=== PATIENT | female | born 1955 | race Caucasian/White ===

== ENCOUNTER 2018-07-31 08:17 | Day surgery (SDC) | payer BC ==
[~2018-07-31] VITALS: Ht 165.1 cm; Wt 91.1 kg
[~2018-07-31 08:17] MED LIST: ADVI100T PO; ATEN25TA PO; DYAZ37.5 PO; GABA-1171 PO; LR 1,000 ML IV ONE; PANT40TA3 PO; PLAQ200T4 PO; SIMV10TA2 PO
[2018-07-31] MEDS ORDERED: LIDOCAINE 1% SDV INJ 30 ML VIAL As Ordered ONE (09:24)
[2018-07-31] MEDS ORDERED: LIDOCAINE 4% TOPICAL SOLN 50 ML BTL As Ordered ONE (09:24)
[2018-07-31] MEDS ORDERED: THROMBIN SOLN 5,000 UNITS VIAL As Ordered ONE (09:24)
[2018-07-31] MEDS ORDERED: EPINEPHrine 1MG/10ML SYRINGE 1.5IN As Ordered ONE (09:24)
[2018-07-31] MEDS ORDERED: LIDOCAINE VISCOUS 2% SOLN 15ML UDC As Ordered ONE (09:25)
[2018-07-31] MEDS ORDERED: CETACAINE SPRAY 5GM As Ordered ONE (09:33)
[2018-07-31] MEDS ORDERED: SUGAMMADEX SODIUM 500 MG/5 ML VIAL (BRIDION) As Ordered ONE (09:57)
[2018-07-31] MEDS ORDERED: METOCLOPRAMIDE INJ 10MG/2ML VIAL (J2765) As Ordered ONE (09:57)
[2018-07-31] MEDS ORDERED: LIDOCAINE 2% INJ 100 MG/5 ML SDV (FOR ANES.) As Ordered ONE (09:57)
[2018-07-31] MEDS ORDERED: MIDAZOLAM INJ 2 MG/2 ML VIAL (J2250) As Ordered ONE (09:57)
[2018-07-31] MEDS ORDERED: fentaNYL 100 MCG/2 ML INJECTION (J3010) As Ordered ONE (09:57)
[2018-07-31] MEDS ORDERED: ROCURONIUM BROMIDE 50 MG/5 ML VIAL As Ordered ONE (09:57)
[2018-07-31] MEDS ORDERED: PROPOFOL 200 MG/20 ML VIAL As Ordered ONE (09:57)
[2018-07-31] MEDS ORDERED: dexameTHASONE 4 MG/ML 1ML VIAL (J1100) As Ordered ONE (09:57)
[2018-07-31] MEDS ORDERED: ONDANSETRON 4MG/2ML VIAL (J2405) As Ordered ONE (09:57)
[2018-07-31] MEDS ORDERED: ePHEDrine SULFATE 25 MG/5 ML(5MG/ML) SYRINGE As Ordered ONE (10:16)
--- NOTE | 2018-07-31 11:12 | RO ---
DATE OF PROCEDURE: 07/31/2018 PREOPERATIVE DIAGNOSIS: Right upper lobe lung nodule. POSTOPERATIVE DIAGNOSIS: Right upper lobe lung nodule. FINDINGS: Included no endobronchial mass, hypertrophy of mucus pits. PROCEDURE: Bronchoscopy with electromagnetic navigation, microbiology cytology brushing, needle aspiration, and multiple biopsies followed by fiducial marker placement. SURGEON: Dr. Eron Méndez LIFE SKILLS WORKER: ANESTHESIA: COMPLICATIONS: None. PROCEDURE NOTE: The patient was seen and the procedure explained to the patient as were all of the possible complications pertaining thereto including, but not limited to bleeding, infection, medication reaction, and lung collapse. An informed consent conversation was held and forms were completed. The patient was brought to the operative suite and placed under a general anesthetic. When the anesthetic had had sufficient time to take effect, the bronchoscope was placed in through the endotracheal tube and into the trachea. The nile was sharp. The airways of the left lung were examined in a subsegmental fashion for any evidence of tumor, ulcer, necrosis, vessel engorgement or mucosal irregularity. There was some mild vessel engorgement leading into the left upper lobe and hypertrophy of mucus pits. No other endobronchial abnormality was appreciated. The bronchoscope was then retracted and reintroduced into the right lung. The right lung was examined in a similar fashion to the left with particular attention being paid to the right upper lobe. There was once again hypertrophy of mucus pits, no endobronchial lesion was identified. The bronchoscope was then retracted into the trachea and electromagnetic navigational probe was placed in through the bronchoscope and registration performed. When registration was successful, the bronchoscope was navigated into the right upper lobe anterior segment and using fluoroscopic guidance the probe was navigated into the lesion appreciated on CT scan. Fluoroscopic confirmation was performed and thereafter microbiology cytology brushes were obtained, in room cytology suggested adequacy of sampling. Thereafter, needle aspiration was performed into the mass and multiple biopsies obtained, again, under fluoroscopic guidance. Having retrieved sufficient sample, a fiducial marker was placed under direct fluoroscopic visualization into the lesion and the bronchoscope retracted out through the endotracheal tube. The patient tolerated the procedure well and suffered no apparent complication. A postprocedure chest x-ray will be performed in the recovery room. There were no complications.
--- NOTE | 2018-07-31 11:44 | REP ---
Partial chest x-ray: Three views. History: Abnormal x-ray. 2 minutes 58 seconds of fluoroscopy time was utilized. Findings: A sequence of three last image hold fluoroscopically obtained spot radiographs of the right chest document bronchoscopic manipulation and fiducial marker placement in a nodular density. Electronically Signed by Fidel Cheatham MD 07/31/2018 02:00 P
[2018-07-31 11:55] VITALS: BP 123/66
== END 2018-07-31 12:12 | disposition home or self-care (01) ==
LOC: M SDC 08:17
PROVIDERS: ATTEND Internal Medicine Pulmonary Disease
DX: C34.11 Malignant neoplasm of upper lobe, right bronchus or lung (principal); I10 Essential (primary) hypertension; E78.5 Hyperlipidemia, unspecified; K21.9 Gastro-esophageal reflux disease without esophagitis; K59.00 Constipation, unspecified; Z79.899 Other long term (current) drug therapy
CPT/HCPCS: 31623; 31626; 31627; 31628; 71045; 76000; 87071; 88104; 88173; 88305; A4648; J1100; J2250; J2405; J2765; J3010

== ENCOUNTER → 2018-09-09 | Outpatient (CLI) | payer BC ==
[~2018-09-09] MED LIST changes: +ISOVUE-370 76% 100ML VIAL (Q9967) As Ordered ONE; -LR 1,000 ML IV ONE
--- NOTE | 2018-09-09 08:38 | REP ---
Clinical: Lung cancer. Technique: Axial contrast enhanced images from the thoracic inlet to the upper abdomen with coronal and sagittal re-formations using 100 ml Isovue 370 intravenous contrast material. Comparison: Outside CT examination dated 07/04/2018. Findings: Right upper lobe mass measures approximately 3.4 cm maximal diameter with mild spiculated margins and now contains a small surgical clip consistent with subsequent biopsy. A reticulonodular interstitial pattern is also appreciated primarily involving the right lower lobe as well as the right upper lobe and to a lesser extent scattered small noncalcified nodules are identified within the left pulmonary lobes and these findings are concerning for interstitial carcinomatosis. No further consolidation or mass lesion noted. No pleural effusion. No pneumothorax. Mediastinal and right hilar lymph nodes measure up to approximately 9 mm and are nonspecific in appearance. Thoracic aorta, pulmonary vasculature and heart/pericardium are relatively normal. Surrounding musculoskeletal structures demonstrate age-related changes without focal lytic / destructive lesion. Evidence of prior cholecystectomy. Bilateral adrenal glands are normal. Mild fatty infiltration to the liver suggested. Impression: 1. Right upper lobe mass. Diffuse reticulonodular interstitial changes (right greater than left) and scattered small noncalcified nodules throughout the bilateral lung tovar concerning for carcinomatosis. Electronically Signed by Slade Garibay MD 09/09/2018 08:13 A
== END ==
LOC: M RAD 07:26
PROVIDERS: ATTEND Thoracic Surgery (Cardiothoracic Vascular Surgery)
DX: C34.11 Malignant neoplasm of upper lobe, right bronchus or lung (principal)
CPT/HCPCS: 71260; Q9967

== ENCOUNTER → 2018-09-09 | Outpatient (CLI) | payer BC ==
[~2018-09-09] MED LIST changes: +DURA25DI3 TD; -ISOVUE-370 76% 100ML VIAL (Q9967) As Ordered ONE; +PERCOCET PO
[2018-09-09 12:51] LABS: HEMATOCRIT 41.7 % (36.0-47.0); HEMOGLOBIN 13.9 g/dl (12.0-15.5); MEAN CORPUSCULAR HEMOGLOBIN 29.4 pg (27.0-33.0); MEAN CORPUSCULAR HGB CONC 33.3 g/dl (32.0-36.5); MEAN CORPUSCULAR VOLUME 88.2 fl (80.0-96.0); PLATELET COUNT, AUTOMATED 243 10^3/uL (150-450); RED BLOOD COUNT 4.73 10^6/uL (4.00-5.40)
[2018-09-09 13:05] LABS: INR 0.97; PARTIAL THROMBOPLASTIN TIME 27.3 SECONDS (25.0-38.4); PROTHROMBIN TIME 12.6 SECONDS (11.8-14.0)
[2018-09-09 13:07] LABS: ABG BASE EXCESS 1.3 (-2.0-2.0); ABG HCO3 25.3 MEQ/L (22.0-26.0); ABG PARTIAL PRESSURE CO2 38.3 mmHg (35.0-45.0); ABG PARTIAL PRESSURE O2 106.4 mmHg (75.0-100.0); ABG STANDARD HCO3 25.6 MEQ/L (22.0-26.0); ABG TOTAL CO2 26.5 MEQ/L (23.0-31.0); ABG pH (ARTERIAL) 7.438 UNITS (7.350-7.450)
[2018-09-09 13:07] LABS: APPEARANCE, URINE CLEAR (CLEAR); BACTERIA, URINE AUTO NEGATIVE (NEGATIVE); BILIRUBIN, URINE AUTO NEGATIVE (NEGATIVE); BLOOD, URINE BLOOD NEGATIVE (NEGATIVE); COLOR, URINE YELLOW (YELLOW); GLUCOSE, URINE (UA) AUTO NEGATIVE (NEGATIVE); KETONE, URINE AUTO NEGATIVE (NEGATIVE); LEUKOCYTE ESTERASE, URINE AUTO NEGATIVE (NEGATIVE); NITRITE, URINE AUTO NEGATIVE (NEGATIVE); PROTEIN, URINE AUTO NEGATIVE (NEGATIVE); RBC, URINE AUTO 3 /HPF (0-3); SQUAMOUS EPITHELIAL CELL UR AU 2 /HPF (0-6); UROBILINOGEN, URINE AUTO 0.2 mg/dL (0.0-2.0); WBC, URINE AUTO 1 /HPF (0-3)
[2018-09-09 13:13] LABS: SPECIFIC GRAVITY URINE AUTO >1.060 (1.002-1.035)
--- NOTE | 2018-09-09 13:49 | REP ---
Clinical: Lung cancer. Chest pain. Technique: PA and lateral. Comparison: 07/31/2018. Findings: Mediastinum and cardiac silhouette are within normal limits and stable. 2.8 cm rounded mass in the right upper lung zone remains stable. Underlying chronic interstitial changes involving the bilateral bases again noted. No obvious acute consolidation, effusion, or pneumothorax. Skeletal structures are stable. Impression: Stable chest x-ray including right upper lobe mass and chronic interstitial changes. No obvious new acute process. Electronically Signed by Slade Garibay MD 09/09/2018 01:41 P
== END ==
LOC: M ADMPAT 12:00
PROVIDERS: ATTEND Thoracic Surgery (Cardiothoracic Vascular Surgery)
DX: Z01.818 Encounter for other preprocedural examination (principal); C34.11 Malignant neoplasm of upper lobe, right bronchus or lung

== ENCOUNTER 2018-09-17 06:30 | Inpatient (IN) | payer BC ==
--- NOTE | 2018-09-11 23:46 | ECGEPIP ---
[facility] Test Date: 2018-09-09 Pat Name: MACK NUÑEZ Department: Room: - Gender: Female Injection Molding Machine Operator: RAISA : 1955 Requested By: Huan Alcala Order Number: [id number] Reading MD: Sheldon Jefferson Measurements Intervals [place] Rate: 77 P: 47 ID: [id number] QRS: 30 QRSD: 130 T: 46 QT: 399 QTc: 453 Interpretive Statements SINUS RHYTHM MODERATE INTRAVENTRICULAR CONDUCTION DELAY, MAY BE ARTIFACTUAL No prior tracing in the system Electronically Signed on 09-11-2018 23:46:35 EDT by Sheldon Jefferson
[~2018-09-17] VITALS: Ht 167.6 cm; Wt 91.0 kg
[2018-09-17] VITALS (11 sets, daily range): BP systolic 92–129; BP diastolic 44–60
[~2018-09-17 06:30] MED LIST changes: -DURA25DI3 TD; +LR 1,000 ML IV ONE; +MIDAZOLAM INJ 2 MG/2 ML VIAL (J2250) IV SCH; +MUPIROCIN 2% OINT 22 GM TUBE TOP ONE; -PERCOCET PO
[2018-09-17] MEDS ORDERED: BUPIVACAINE LIPOSOME/PF 1.3% 20ML VIAL (13.3MG/ML)(EXPAREL)(C9290 PER1MG) As Ordered ONE (07:37)
[2018-09-17] MEDS ORDERED: BUPIVACAINE HCL 0.5% 10 ML VIAL As Ordered ONE (07:38)
[2018-09-17] MEDS ORDERED: SCOPOLAMINE 1MG TRANSDERMAL PATCH As Ordered ONE (08:03)
[2018-09-17] MEDS ORDERED: fentaNYL 100 MCG/2 ML INJECTION (J3010) As Ordered ONE (08:09)
[2018-09-17] MEDS ORDERED: MIDAZOLAM INJ 2 MG/2 ML VIAL (J2250) As Ordered ONE ×2 (08:09→09:37)
[2018-09-17] MEDS ORDERED: SCOPOLAMINE 1MG TRANSDERMAL PATCH TOP ONE (08:15)
[2018-09-17] MEDS ORDERED: CETACAINE SPRAY 5GM As Ordered ONE (08:27)
[2018-09-17] MEDS ORDERED: fentaNYL 100 MCG/2 ML INJECTION (J3010) IV ONE (09:00)
[2018-09-17] MEDS ORDERED: ROCURONIUM BROMIDE 50 MG/5 ML VIAL As Ordered ONE (09:37)
[2018-09-17] MEDS ORDERED: PROPOFOL 200 MG/20 ML VIAL As Ordered ONE (09:37)
[2018-09-17] MEDS ORDERED: LIDOCAINE 2% INJ 100 MG/5 ML SDV (FOR ANES.) As Ordered ONE (09:37)
[2018-09-17] MEDS ORDERED: fentaNYL 250 MCG/5 ML INJECTION (J3010) As Ordered ONE (09:37)
[2018-09-17] MEDS ORDERED: dexameTHASONE 4 MG/ML 1ML VIAL (J1100) As Ordered ONE (09:38)
[2018-09-17] MEDS ORDERED: PHENYLEPHRINE INJ 10MG/ML VIAL (J2370) As Ordered ONE (10:04)
[2018-09-17] MEDS ORDERED: SUGAMMADEX SODIUM 500 MG/5 ML VIAL (BRIDION) As Ordered ONE (10:22)
[2018-09-17] MEDS ORDERED: ONDANSETRON 4MG/2ML VIAL (J2405) As Ordered ONE (10:23)
[2018-09-17] MEDS ORDERED: EPIDURAL/PCA KEYS XX PRN (11:30)
[2018-09-17] MEDS ORDERED: FENTANYL/BUPIVACAINE/NACL BAG 250 ML EPIDURAL SCH (11:30)
[2018-09-17] MEDS ORDERED: ONDANSETRON 4MG/2ML VIAL (J2405) IV PRN ×2 (11:30→12:15)
[2018-09-17] MEDS ORDERED: WALLBOXKEY XX PRN (11:30)
[2018-09-17] MEDS ORDERED: NALOXONE INJ 0.4 MG/1 ML VIAL (J2310) IV PRN (11:30)
[2018-09-17] MEDS ORDERED: METOCLOPRAMIDE INJ 10MG/2ML VIAL (J2765) IV PRN ×2 (11:30→12:15)
[2018-09-17] MEDS: FENTANYL/BUPIVACAINE/NACL BAG 250 ML EPIDURAL SCH (11:30)
[2018-09-17] MEDS: KCL 20MEQ IN D5/NS 1000ML 1,000 ML IV SCH ×2 (11:46→22:53)
[2018-09-17 12:00] LABS: ABG BASE EXCESS 1.4 (-2.0-2.0); ABG HCO3 27.2 MEQ/L (22.0-26.0); ABG O2 SATURATION 97.9 % (95.0-99.0); ABG PARTIAL PRESSURE CO2 47.2 mmHg (35.0-45.0); ABG PARTIAL PRESSURE O2 110.5 mmHg (75.0-100.0); ABG STANDARD HCO3 25.8 MEQ/L (22.0-26.0); ABG TOTAL CO2 28.6 MEQ/L (23.0-31.0); ABG pH (ARTERIAL) 7.378 UNITS (7.350-7.450)
[2018-09-17] MEDS ORDERED: BISACODYL 10 MG SUPP PR PRN (12:00)
[2018-09-17] MEDS ORDERED: NORCO, ANEXSIA 5/325MG TABLET (HYDROcodone/ACETAMINOPHEN) PO PRN (12:00)
[2018-09-17] MEDS ORDERED: PERCOCET 5MG/325MG TAB PO PRN ×2 (12:00→12:15)
[2018-09-17] MEDS ORDERED: LEVALBUTEROL 1.25 MG/0.5 ML CONCENTRATE NEB NEB PRN (12:00)
[2018-09-17] MEDS ORDERED: KCL 20MEQ IN D5/0.9%NACL 1000 ML As Ordered ONE (12:03)
[2018-09-17 12:08] LABS: BASO # 0.1 10^3/uL (0.0-0.2); BASO % 0.7 % (0.0-1.0); EOS % 0.3 % (0.0-3.0); HEMATOCRIT 38.6 % (36.0-47.0); LYMPH # 0.5 10^3/uL (1.5-4.5); LYMPH % 6.8 % (24.0-44.0); MEAN CORPUSCULAR HEMOGLOBIN 29.7 pg (27.0-33.0); MEAN CORPUSCULAR HGB CONC 33.7 g/dl (32.0-36.5); MEAN CORPUSCULAR VOLUME 88.3 fl (80.0-96.0); MONO # 0.2 10^3/uL (0.0-0.8); MONO % 3.5 % (0.0-5.0); NEUTROPHILS # 6.1 10^3/uL (1.8-7.7); NEUTROPHILS % 88.4 % (36.0-66.0); PLATELET COUNT, AUTOMATED 247 10^3/uL (150-450); RED BLOOD COUNT 4.37 10^6/uL (4.00-5.40); WHITE BLOOD COUNT 6.9 10^3/uL (4.0-10.0)
[2018-09-17] MEDS: fentaNYL 100 MCG/2 ML INJECTION (J3010) IV PRN ×4 (12:08→12:30)
[2018-09-17] MEDS ORDERED: KETOROLAC 30 MG/ML VIAL (J1885) As Ordered ONE (12:12)
[2018-09-17] MEDS: KETOROLAC 30 MG/ML VIAL (J1885) IV SCH ×2 (12:15→17:04)
[2018-09-17] MEDS ORDERED: LR 1,000 ML IV SCH (12:15)
--- NOTE | 2018-09-17 12:18 | REP ---
Clinical: Status post thoracotomy. Comparison: 09/09/2018. Findings: Postsurgical changes involving the right hemithorax with two chest tubes, small amount of subcutaneous emphysema, and right basilar atelectasis. Right upper lobe mass is again identified and essentially unchanged. Left hemithorax is clear. Cardiac silhouette is normal. Skeletal structures are intact. Impression: Postsurgical changes involving the right hemithorax. Electronically Signed by Slade Garibay MD 09/17/2018 12:10 P
[2018-09-17] MEDS ORDERED: ACETAMINOPHEN 1000MG 100ML IV BTL (OFIRMEV) (J0131 PER 10MG) As Ordered ONE (12:24)
[2018-09-17 12:25] LABS: CALCIUM LEVEL 8.4 MG/DL (8.8-10.2); CREATININE FOR GFR 1.11 MG/DL (0.55-1.30); GLOMERULAR FILTRATION RATE 52.8 (>45); POTASSIUM SERUM 3.1 MEQ/L (3.5-5.1)
[2018-09-17] MEDS ORDERED: ACETAMINOPHEN *IV* 1,000 MG IV ONE ×2 (12:45)
--- NOTE | 2018-09-17 12:51 | RO ---
DATE OF PROCEDURE: 09/17/2018 PREPROCEDURE DIAGNOSIS: Stage I B adenocarcinoma of the right upper lobe. POSTPROCEDURE DIAGNOSIS: At least stage III A adenocarcinoma with diffuse metastasis to lower and middle lobes with lymphangitic spread by frozen section. PROCEDURE: Bronchoscopy, right thoracotomy, multiple wedge resections of the middle and lower lobes. Pleural biopsy. Five-level rib block. Multiple pleural biopsies. SURGEON: Huan Edwards PRINTING MECHANIST: ANESTHESIA: Anesthesia. FINDINGS: Upon gaining access to the chest, the fissures were complete. However, I did notice that the major fissure was covered with a nodular whitish-frazier tissue. I palpated the upper lobe and I easily found the tumor. However, the middle lobe and lower lobe had multiple nodules, almost like the grains of sand. Because I was suspicious that the major fissure tissue looked to be suspicious for carcinoma and metastatic spread, I biopsied a few of the nodules in the right middle lobe and they turned out to be poorly differentiated adenocarcinoma, the same type as the upper lobe with lymphangitic spread. I took biopsies of the pleura and also of the right lower lobe. I did not find any pleural studding, although I did undertake some random samples of the pleura. She had diffuse spread of the carcinoma throughout ipsilateral lobes. This favored at least stage III A disease and I did not see therapeutic implication to undertake lymph node dissection. Of course, I did not see any therapeutic implications to continue with the lobectomy. Bronchoscopy revealed a normal bronchial tree. I did not see any endobronchial lesions. She has scant secretions. DESCRIPTION OF PROCEDURE: Under satisfactory single lumen tube intubation with general anesthesia, bronchoscope was placed in tracheobronchial tree. Each segment and sub-segment was thoroughly inspected and I did not see any endobronchial lesions. The patient was then turned into the left lateral decubitus position and sterilely prepped and draped in the usual fashion. A posterolateral thoracotomy incision was made and the chest was entered initially through the 5th intercostal space after counting the ribs. With the small peek that I had through that intercostal space, I was not happy with the position of the fissure. Therefore, I decided to go to the 4th intercostal space and do a thoracotomy through that. The above findings were noted. The middle lobe nodules were seized with a Millard clamp and wedge resection undertaken with the [place] 4.8 stapler. Likewise, the lower lobe nodules were wedged. Realizing that the nodules that were wedged represented one of maybe scores of nodules that I could feel in both lower and middle lobes, the planned lobectomy was abandoned. I did not see or feel pleural studs, but random biopsies were taken of the parietal pleura. A 5-level rib block with Exparel was then injected and two chest tubes were placed, one posteriorly and one anteriorly consisting of 24 curved and straight tubes. The ribs were reapproximated by use of #1-0 Prolene, [id number] pericostal sutures. The serratus muscle was closed with 0 Vicryl suture as was the latissimus dorsi. Subcutaneous tissue was closed with running #3-0 Vicryl suture and the skin was closed with running #4-0 Monocryl subcuticular suture. Prior to final closures the serratus and the latissimus dorsi were infused with Exparel. The patient tolerated the procedure well and left the operating room in satisfactory condition for the recovery room. It should be noted that I personally went to the lab and delivered the specimen and reviewed the slides and findings with Dr. Tolentino of pathology prior to making my intraoperative decisions. ROYAL
[2018-09-17] MEDS: ceFAZolin SOD 1 GM in D5W MINI-BAG PLUS 50 ML IV SCH (17:01)
[2018-09-17] MEDS: LEVALBUTEROL 1.25 MG/0.5 ML CONCENTRATE NEB NEB SCH (19:52)
[2018-09-17] MEDS: DOCUSATE SODIUM 100 MG CAP PO SCH (20:00)
[2018-09-17] MEDS: HEPARIN SOD (PORCINE) 5000 UNITS/ML VIAL SC SCH (20:00)
[2018-09-17] MEDS: diphenhydrAMINE INJ 50MG/ML VIAL (J1200) IV PRN (21:08)
[2018-09-18] VITALS (11 sets, daily range): BP systolic 90–122; BP diastolic 38–57
[2018-09-18] MEDS: ceFAZolin SOD 1 GM in D5W MINI-BAG PLUS 50 ML IV SCH ×3 (00:39→16:41)
[2018-09-18] MEDS: KETOROLAC 30 MG/ML VIAL (J1885) IV SCH ×4 (00:40→18:11)
[2018-09-18] MEDS: LEVALBUTEROL 1.25 MG/0.5 ML CONCENTRATE NEB NEB SCH ×4 (02:12→19:11)
[2018-09-18] MEDS: diphenhydrAMINE INJ 50MG/ML VIAL (J1200) IV PRN ×2 (04:45→09:27)
[2018-09-18 05:39] LABS: CALCIUM LEVEL 7.8 MG/DL (8.8-10.2); CREATININE FOR GFR 1.11 MG/DL (0.55-1.30); GLOMERULAR FILTRATION RATE 52.8 (>45); POTASSIUM SERUM 3.5 MEQ/L (3.5-5.1)
[2018-09-18 05:51] LABS: BASO % 0.2 % (0.0-1.0); HEMATOCRIT 34.5 % (36.0-47.0); HEMOGLOBIN 11.3 g/dl (12.0-15.5); LYMPH # 0.5 10^3/uL (1.5-4.5); LYMPH % 5.1 % (24.0-44.0); MEAN CORPUSCULAR HEMOGLOBIN 28.5 pg (27.0-33.0); MEAN CORPUSCULAR HGB CONC 32.8 g/dl (32.0-36.5); MEAN CORPUSCULAR VOLUME 86.9 fl (80.0-96.0); MONO # 0.9 10^3/uL (0.0-0.8); MONO % 9.7 % (0.0-5.0); NEUTROPHILS # 7.4 10^3/uL (1.8-7.7); NEUTROPHILS % 84.5 % (36.0-66.0); PLATELET COUNT, AUTOMATED 172 10^3/uL (150-450); RED BLOOD COUNT 3.97 10^6/uL (4.00-5.40); WHITE BLOOD COUNT 8.8 10^3/uL (4.0-10.0)
[2018-09-18 06:34] LABS: ABG HCO3 24.9 MEQ/L (22.0-26.0); ABG O2 SATURATION 97.4 % (95.0-99.0); ABG PARTIAL PRESSURE CO2 41.6 mmHg (35.0-45.0); ABG PARTIAL PRESSURE O2 96.8 mmHg (75.0-100.0); ABG STANDARD HCO3 24.5 MEQ/L (22.0-26.0); ABG TOTAL CO2 26.2 MEQ/L (23.0-31.0); ABG pH (ARTERIAL) 7.395 UNITS (7.350-7.450)
[2018-09-18] MEDS: ATENOLOL 25 MG TAB PO SCH (09:00)
--- NOTE | 2018-09-18 09:01 | REP ---
Clinical: Status post thoracotomy. Technique: PA and lateral. Comparison: 09/17/2018. Findings: Postsurgical changes involving the right hemithorax include to stable chest tubes as well as pleuroparenchymal changes to the left mid/lower lung zone which may be slightly improved when compared to prior examination. Small amount of residual subcutaneous emphysema along the lateral chest wall slightly improved. No new acute process identified. Impression: 1. Postsurgical changes involving the right hemithorax slightly improved from prior examination. 2. No new acute process identified. Electronically Signed by Slade Garibay MD 09/18/2018 08:52 A
[2018-09-18] MEDS: MOM 30ML SUSPENSION UDC PO SCH (09:27)
[2018-09-18] MEDS: PANTOPRAZOLE 40MG TAB (PROTONIX) PO SCH (09:27)
[2018-09-18] MEDS: HEPARIN SOD (PORCINE) 5000 UNITS/ML VIAL SC SCH ×2 (09:27→19:59)
[2018-09-18] MEDS: DOCUSATE SODIUM 100 MG CAP PO SCH ×2 (09:27→19:58)
[2018-09-18] MEDS: GABAPENTIN 100 MG CAP PO SCH ×3 (11:07→19:58)
[2018-09-18] MEDS: DYAZIDE 37.5/25 CAP (TRIAM/HCTZ) PO SCH (11:08)
[2018-09-18] MEDS: SIMVASTATIN 10 MG TAB PO SCH (11:08)
[2018-09-18] MEDS: HYDROXYCHLOROQUINE 200 MG TAB PO SCH ×2 (11:08→19:58)
[2018-09-18] MEDS: FENTANYL/BUPIVACAINE/NACL BAG 250 ML EPIDURAL SCH (11:23)
[2018-09-18] MEDS ORDERED: NALBUPHINE HCL 10 MG/ML AMP (J2300) IV PRN (11:30)
[2018-09-18] MEDS ORDERED: NALBUPHINE HCL 10 MG/ML AMP (J2300) IV ONE (11:30)
--- NOTE | 2018-09-18 14:30 | IPN ---
DATE OF SERVICE: 09/18/2018 This is now the first postoperative day for Mrs. Knutson after multiple wedge resections, where she was found to have lymphangitic spread of a right upper lobe adenocarcinoma. Yesterday afternoon after she awoke from surgery, I discussed with her the findings of the operation and indicated reasons why not to undertake the lobectomy. Today, she is doing well and is well composed. Her pain is being well controlled, and she is sitting comfortably in the chair, and she is eating breakfast. Her vital signs show a maximum temperature (Tmax) of 98.0 with a heart rate that ranges between 56 and 72 in a sinus rhythm, respiratory rate of 17-20 without the use of accessory muscles who is 96% saturated on 1 liter nasal cannula, and whose blood pressure is ranging between 114/48 to 112/46. Her intake and output over the past 24 hours has been recorded as 2178 in and 685 out for a positivity of 1493 mL. She has put out 170 mL from the chest tube, and there was a reported small air leak by both the night and morning nurses. I did not see an air leak today on rounds. Her urine output has been reported as 5 mL. On physical examination, she has some rhonchi and rales in the right hemithorax, most of which she cleared with coughing. Percussion note is full to the diaphragm. Cardiovascular examination: Is without murmurs, click, gallops, or rubs. I cannot feel her point of maximal impulse (PMI). S1 and S2 are normal. Abdomen: Is soft and nontender. Bowel sounds are positive. There is no hepatomegaly, no costovertebral angle (CVA) tenderness. Extremities: Show no pretibial edema. No calf tenderness. No differential swelling of the upper extremities. Skin: Is warm, dry, and perfused without cyanosis or mottling, including that of the nail beds and the knees. Neck: Is supple. There is no jugular venous distention, no subcutaneous emphysema. Trachea is midline. Mouth: Shows her mucous membranes to be pink and moist. Lips and commissures without lesions. There is no thrush. Eyes: Show her pupils to be equal and reactive. Extraocular motor intact. Sclerae anicteric. Neurologic: Shows II-XII intact, along with gross motor and gross sensation intact. Gait is not tested. Psychiatric: Shows her to be awake and alert, oriented times three, with appropriate mood and affect and conversational. Her white count today is 8.8 with a hemoglobin and hematocrit of 11.3 and 34.5 slightly down from 13.0 and 38.6 secondary to hemodilution. Platelet count is 172. Differential shows 85% neutrophils, 5% lymphocytes, and 9% monocytes. There are no immature forms, no toxic granulations. Her electrolytes show a potassium of 3.5 with a BUN and creatinine of 22 and 1.1 unchanged from yesterday postoperatively in the recovery room. Glucose is 149 with a calcium of 7.8. Blood gases today show a pH of 7.39, PCO2 of 41, and a pO2 of 96 with a base excess of 0. Her chest x-ray today shows atelectasis in the right lower hemithorax. The right upper lobe mass is still there, of course. Chest tubes are in good place. Costophrenic angles are sharp, and there is minimal subcutaneous emphysema at the chest tube insertion sites. IMPRESSION: 1. At least stage IIIA adenocarcinoma with lymphangitic spread to all lobes. 2. Hypertension. 3. Arthritis. On Plaquenil. 4. Chronic back pain. PLAN AND DISCUSSION: I will transfer her to the progressive care unit (PCU) today. Will wait for the air leak to stop, which should be in a minute. I will restart her home medications.
[2018-09-19] VITALS (8 sets, daily range): BP systolic 91–120; BP diastolic 47–58
[2018-09-19] MEDS: KETOROLAC 30 MG/ML VIAL (J1885) IV SCH ×5 (00:03→23:33)
[2018-09-19] MEDS: ceFAZolin SOD 1 GM in D5W MINI-BAG PLUS 50 ML IV SCH ×2 (00:03→09:49)
[2018-09-19] MEDS: LEVALBUTEROL 1.25 MG/0.5 ML CONCENTRATE NEB NEB SCH ×4 (01:49→20:30)
[2018-09-19 04:34] LABS: BASO # 0.1 10^3/uL (0.0-0.2); BASO % 0.7 % (0.0-1.0); EOS # 0.1 10^3/uL (0.0-0.50); EOS % 1.6 % (0.0-3.0); HEMATOCRIT 34.3 % (36.0-47.0); HEMOGLOBIN 11.1 g/dl (12.0-15.5); LYMPH # 1.2 10^3/uL (1.5-4.5); LYMPH % 15.9 % (24.0-44.0); MEAN CORPUSCULAR HEMOGLOBIN 29.4 pg (27.0-33.0); MEAN CORPUSCULAR HGB CONC 32.4 g/dl (32.0-36.5); MEAN CORPUSCULAR VOLUME 90.7 fl (80.0-96.0); MONO # 0.9 10^3/uL (0.0-0.8); NEUTROPHILS # 5.2 10^3/uL (1.8-7.7); NEUTROPHILS % 69.4 % (36.0-66.0); PLATELET COUNT, AUTOMATED 122 10^3/uL (150-450); RED BLOOD COUNT 3.78 10^6/uL (4.00-5.40); WHITE BLOOD COUNT 7.4 10^3/uL (4.0-10.0)
[2018-09-19 04:48] LABS: CALCIUM LEVEL 7.8 MG/DL (8.8-10.2); CREATININE FOR GFR 1.3 MG/DL (0.55-1.30); POTASSIUM SERUM 3.8 MEQ/L (3.5-5.1)
--- NOTE | 2018-09-19 08:39 | REP ---
Clinical: Status post thoracotomy. Technique: PA and lateral. Comparison: 09/18/2018 Findings: Relatively stable postoperative changes involve the right hemithorax with suspected scattered elements of atelectasis as well as continued small amount of subcutaneous emphysema. No visible pneumothorax. Two right-sided chest tubes are in stable position. The mediastinum and cardiac silhouette and left hemithorax appear stable and normal. Impression: Postsurgical changes involving the right hemithorax remain relatively stable. Electronically Signed by Slade Garibay MD 09/19/2018 08:31 A
[2018-09-19] MEDS: ATENOLOL 25 MG TAB PO SCH (09:00)
[2018-09-19] MEDS ORDERED: FUROSEMIDE 40 MG/4 ML VIAL (J1940) IV ONE (09:45)
[2018-09-19] MEDS: HYDROXYCHLOROQUINE 200 MG TAB PO SCH ×2 (09:47→20:35)
[2018-09-19] MEDS: MOM 30ML SUSPENSION UDC PO SCH (09:48)
[2018-09-19] MEDS: DOCUSATE SODIUM 100 MG CAP PO SCH ×2 (09:48→20:35)
[2018-09-19] MEDS: DYAZIDE 37.5/25 CAP (TRIAM/HCTZ) PO SCH (09:48)
[2018-09-19] MEDS: PANTOPRAZOLE 40MG TAB (PROTONIX) PO SCH (09:48)
[2018-09-19] MEDS: SIMVASTATIN 10 MG TAB PO SCH (09:48)
[2018-09-19] MEDS: GABAPENTIN 100 MG CAP PO SCH ×3 (09:48→20:35)
[2018-09-19] MEDS: FENTANYL/BUPIVACAINE/NACL BAG 250 ML EPIDURAL SCH (11:18)
--- NOTE | 2018-09-19 12:25 | IPN ---
DATE: 09/19/2018 This is now the second postoperative day for Mrs. Knutson. She is seen sitting comfortably in a chair. There is no air leak today. Her blood pressure is on the soft side at 91/57, ranging between 110 and 90/50. The pain is being well controlled with the epidural. Her maximum temperature (t-max) over the last 24 hours has been 98.4 with a heart rate that ranges between 77 and 86 in a sinus rhythm, respiratory rate of 18 to 20 without the use of accessory muscles, who is 97% saturated on 1 liter nasal cannula. Blood pressure is as above. Her intake and output over the past 24 hours has been recorded as 2692 in and 985 out for a positivity of 1700 mL. She has put out 685 mL in urine and her chest tube has drained 300 mL and there is no air leak. She weighs 94.2 kg today compared to 90 kg yesterday. PHYSICAL EXAMINATION LUNGS: Her lungs show normal vesicular sounds. I hear no wheezes, rhonchi or rales. Percussion note is full to the diaphragm. CARDIAC EXAM: Without murmurs, clicks, gallops or rubs. I cannot feel her point of maximum impulse (PMI). S1, S2 are normal. ABDOMEN: Soft, nontender. Bowel sounds positive. There is no hepatomegaly. No costovertebral angle tenderness. EXTREMITIES: Show 1+ pretibial edema. No calf tenderness. No differential swelling of the upper extremities. SKIN: Warm, dry and perfused without cyanosis or mottling, including that of the nail beds and knees. NECK: Supple. There is no jugular venous distention. No subcutaneous emphysema. Trachea is midline. MOUTH: Shows her mucous membranes to be pink and moist. Lips and commissures without lesions. There is no thrush. EYES: Show her pupils to be equal and reactive. Extraocular motion intact. Sclerae anicteric. NEUROLOGIC: Shows II through XII intact with gross motor and gross sensation intact. Gait is not tested. PSYCHIATRIC: Shows her to be awake and alert, oriented times three with appropriate mood and affect and conversational. LABORATORY DATA: Her white count today is 7.4 with a hemoglobin and hematocrit of 11.1 and 34.3, unchanged from yesterday. Platelet count is now down to 122 from 172 yesterday and 247 just postoperative. Differential shows 69% neutrophils, 15% lymphocytes, and 12% monocytes. There are no immature forms, no toxic granulations. Her electrolytes are normal with a BUN and creatinine however of 27 and 1.30. Glucose is 111, calcium 7.8. Her creatinine is increased to 1.1 the last 2 days. Her chest x-ray today shows some residual atelectasis in the right lower hemithorax. There is some subcutaneous air along the lateral hemithorax. Costophrenic angles are sharp. IMPRESSION: 1. Postoperative day number 2 status post multiple wedge resections. 2. At least stage IIIA adenocarcinoma with lymphangitic spread to all lobes. 3. Hypertension. 4. Arthritis. On Plaquenil. 5. Chronic back pain. 6. New thrombocytopenia, rule out heparin induced thrombocytopenia (HIT) antibodies. 7. Relative hypotension, probably secondary to the epidural. We will wean the epidural. 8. Rising creatinine and decreased urine output. PLAN AND DISCUSSION: Today, I expect to diurese. I will give her IV Lasix. She is already on Diazide orally, as she was preoperatively. I will discontinue her heparin and make sure her sequential boots remain on throughout the day. She does have metastatic carcinoma and she is at risk for hypercoagulability, however, her platelets have markedly dropped and I have to make sure that this is not secondary to heparin. As I have some warning signs that she is having postoperative complications, I am going to keep her in the intensive care unit (ICU).
[2018-09-19] MEDS: ACETAMINOPHEN TAB 650MG DOSE (2X325MG) PO PRN (22:06)
[2018-09-20] VITALS (10 sets, daily range): BP systolic 95–118; BP diastolic 45–60
[2018-09-20] MEDS: LEVALBUTEROL 1.25 MG/0.5 ML CONCENTRATE NEB NEB SCH ×4 (02:40→20:55)
[2018-09-20 04:55] LABS: BASO # 0.1 10^3/uL (0.0-0.2); BASO % 0.8 % (0.0-1.0); EOS # 0.3 10^3/uL (0.0-0.50); EOS % 4.9 % (0.0-3.0); HEMATOCRIT 32.9 % (36.0-47.0); HEMOGLOBIN 10.5 g/dl (12.0-15.5); LYMPH # 1.3 10^3/uL (1.5-4.5); LYMPH % 21.6 % (24.0-44.0); MEAN CORPUSCULAR HEMOGLOBIN 29.2 pg (27.0-33.0); MEAN CORPUSCULAR HGB CONC 31.9 g/dl (32.0-36.5); MEAN CORPUSCULAR VOLUME 91.6 fl (80.0-96.0); MONO # 0.7 10^3/uL (0.0-0.8); MONO % 12.4 % (0.0-5.0); NEUTROPHILS # 3.5 10^3/uL (1.8-7.7); NEUTROPHILS % 60.1 % (36.0-66.0); PLATELET COUNT, AUTOMATED 198 10^3/uL (150-450); RED BLOOD COUNT 3.59 10^6/uL (4.00-5.40); WHITE BLOOD COUNT 5.9 10^3/uL (4.0-10.0)
[2018-09-20 05:15] LABS: CALCIUM LEVEL 8.2 MG/DL (8.8-10.2); CREATININE FOR GFR 1.46 MG/DL (0.55-1.30); GLOMERULAR FILTRATION RATE 38.5 (>45); POTASSIUM SERUM 4.2 MEQ/L (3.5-5.1)
[2018-09-20] MEDS: KETOROLAC 30 MG/ML VIAL (J1885) IV SCH ×3 (05:24→15:56)
--- NOTE | 2018-09-20 07:10 | REP ---
Clinical: Status post thoracotomy. Technique: PA and lateral. Comparison: 09/19/2018. Findings: The right upper lobe mass and postsurgical pleuroparenchymal changes involving the right hemithorax including two chest tubes remain essentially stable. Left hemithorax is clear. Cardiac silhouette is normal. Skeletal structures are grossly intact. Impression: No significant change from prior examination. Electronically Signed by Slade Garibay MD 09/20/2018 07:01 A
[2018-09-20] MEDS ORDERED: D5/0.9%NACL 1000ML IV ONE (07:15)
[2018-09-20] MEDS: DOCUSATE SODIUM 100 MG CAP PO SCH ×2 (08:32→20:38)
[2018-09-20] MEDS: HYDROXYCHLOROQUINE 200 MG TAB PO SCH ×2 (08:33→20:38)
[2018-09-20] MEDS: PANTOPRAZOLE 40MG TAB (PROTONIX) PO SCH (08:33)
[2018-09-20] MEDS: MOM 30ML SUSPENSION UDC PO SCH (08:34)
[2018-09-20] MEDS: GABAPENTIN 100 MG CAP PO SCH ×3 (08:34→20:38)
[2018-09-20] MEDS: DYAZIDE 37.5/25 CAP (TRIAM/HCTZ) PO SCH (08:34)
[2018-09-20] MEDS: SIMVASTATIN 10 MG TAB PO SCH (08:36)
[2018-09-20] MEDS: ATENOLOL 25 MG TAB PO SCH (09:00)
[2018-09-20] MEDS: ACETAMINOPHEN TAB 650MG DOSE (2X325MG) PO PRN ×3 (10:02→22:04)
--- NOTE | 2018-09-20 10:40 | IPN ---
DATE: 09/20/2018 This is the third postoperative day for Mrs. Knutson. Her platelets are better, but her creatinine is up. Nonetheless, she is feeling well and her pain is being well controlled even on 4 mL of epidural/hour. Her vital signs show a maximum temperature (t-max) of 99.0, with a heart rate that ranges between 74 and 80 in a sinus rhythm, a respiratory rate of 18 to 20 without the use of accessory muscles, who is 93-95% saturated on 1 liter nasal cannula, and whose blood pressure is ranging between 103/55 to 97/54. Her intake and output over the past 24 hours has been recorded as 1058 in and 2605 out for a negativity of 1500 mL. She has put 240 mL out the chest tube. Her weight today is 94.2 kg which is the same as yesterday. There is no air leak. On physical examination, she has some inspiratory rales at the right bas. Percussion notes are full to the diaphragm. Left lung shows normal vesicular sounds. CARDIAC EXAM: Without murmurs, clicks, gallops or rubs. I cannot feel her point of maximum impulse (PMI). S1 and S2 are normal. ABDOMEN: Soft, nontender. Bowel sounds positive. There is no hepatomegaly. No costovertebral angle tenderness. She has had flatus, but no bowel movement. EXTREMITIES: Show maybe trace pretibial edema. No calf tenderness. No differential swelling of the upper extremities. Her edema is much better today than it was yesterday. SKIN: Warm, dry and perfused without cyanosis or mottling, including that of the nail beds and knees. NECK: Supple. There is no jugular venous distention. No subcutaneous emphysema. Trachea is midline. MOUTH: Shows her mucous membranes to be pink and moist. Lips and commissures without lesions. There is no thrush. EYES: Show her pupils to be equal and reactive. Extraocular motion intact. Sclerae anicteric. NEUROLOGIC: Shows II through XII intact along with gross motor and gross sensation intact. Gait is not tested. PSYCHIATRIC: Shows her to be awake and alert, oriented times three with appropriate mood and affect and conversational. LABORATORY DATA: Her white count today is 5.9 with a hemoglobin and hematocrit of 10.5 and 32.9, slightly down from 11.1 and 34.3. Platelet count is back up to 198. I have continued to hold her heparin. Heparin induced antibody is still pending. Differential shows 60% neutrophils, 21% lymphocytes, and 12% monocytes. There are no immature forms and no toxic granulations. Her electrolytes are normal with a BUN and creatinine however of 29 and 1.46, up from 27 and1.3 yesterday and 22 and 1.1 the day before. Calcium is 8.2 with glucose of 111. Her chest x-ray today shows her lung fully expanded to the chest wall. There is atelectatic changes in the right lower lobe. There is some subcutaneous emphysema along the superior lateral chest wall. It is beginning to dissipate. The costophrenic angles are sharp. IMPRESSION: 1. Postoperative day number 3 status post multiple wedge resections. 2. At least stage IIIA adenocarcinoma with lymphangitic spread to all lobes. 3. Hypertension. 4. Arthritis. On Plaquenil. 5. Chronic back pain. 6. Thrombocytopenia, resolving with heparin discontinued. 7. Relative hypotension, secondary to epidural, improving. 8. Rising creatinine, worsening. PLAN AND DISCUSSION: While she responded well to the 40 mg of Lasix I gave her yesterday with 2365 mL of urine, her creatinine continues to rise. I will therefore hydrate her and give her a 500 mL bolus of normal saline. Yesterday because of her fall in platelets and because of her creatinine I held her in the intensive care unit (ICU) and I will now transfer her to the progressive care unit (PCU).
[2018-09-20] MEDS ORDERED: SLF 3 ML SYR IV PRN (11:45)
[2018-09-20] MEDS: FENTANYL/BUPIVACAINE/NACL BAG 250 ML EPIDURAL SCH (11:49)
[2018-09-20] MEDS: SLF 3 ML SYR IV SCH ×2 (14:00→21:00)
[2018-09-21] VITALS: BP 111/51
[2018-09-21] MEDS: LEVALBUTEROL 1.25 MG/0.5 ML CONCENTRATE NEB NEB SCH ×4 (02:00→20:22)
[2018-09-21 04:00] VITALS: BP 105/53
[2018-09-21] MEDS: KETOROLAC 30 MG/ML VIAL (J1885) IV SCH ×3 (06:00→10:01)
[2018-09-21] MEDS: SLF 3 ML SYR IV SCH ×3 (06:10→21:19)
[2018-09-21] MEDS: ACETAMINOPHEN TAB 650MG DOSE (2X325MG) PO PRN ×2 (06:26→17:07)
[2018-09-21 07:38] LABS: BASO # 0.1 10^3/uL (0.0-0.2); BASO % 1.1 % (0.0-1.0); EOS # 0.4 10^3/uL (0.0-0.50); HEMATOCRIT 36.6 % (36.0-47.0); HEMOGLOBIN 11.9 g/dl (12.0-15.5); LYMPH # 0.9 10^3/uL (1.5-4.5); LYMPH % 16.7 % (24.0-44.0); MEAN CORPUSCULAR HEMOGLOBIN 29.3 pg (27.0-33.0); MEAN CORPUSCULAR HGB CONC 32.5 g/dl (32.0-36.5); MEAN CORPUSCULAR VOLUME 90.1 fl (80.0-96.0); MONO # 0.5 10^3/uL (0.0-0.8); MONO % 8.7 % (0.0-5.0); NEUTROPHILS # 3.5 10^3/uL (1.8-7.7); NEUTROPHILS % 66.3 % (36.0-66.0); PLATELET COUNT, AUTOMATED 228 10^3/uL (150-450); RED BLOOD COUNT 4.06 10^6/uL (4.00-5.40); WHITE BLOOD COUNT 5.3 10^3/uL (4.0-10.0)
[2018-09-21 07:42] VITALS: BP 95/51
[2018-09-21 08:00] LABS: CALCIUM LEVEL 8.5 MG/DL (8.8-10.2); CREATININE FOR GFR 1.3 MG/DL (0.55-1.30); POTASSIUM SERUM 4.6 MEQ/L (3.5-5.1)
[2018-09-21] MEDS: DOCUSATE SODIUM 100 MG CAP PO SCH ×2 (08:46→21:18)
[2018-09-21] MEDS: DYAZIDE 37.5/25 CAP (TRIAM/HCTZ) PO SCH (08:46)
[2018-09-21] MEDS: MOM 30ML SUSPENSION UDC PO SCH (08:46)
[2018-09-21] MEDS: HYDROXYCHLOROQUINE 200 MG TAB PO SCH ×2 (08:46→21:18)
[2018-09-21] MEDS: SIMVASTATIN 10 MG TAB PO SCH (08:47)
[2018-09-21] MEDS: GABAPENTIN 100 MG CAP PO SCH ×3 (08:47→21:19)
[2018-09-21] MEDS: PANTOPRAZOLE 40MG TAB (PROTONIX) PO SCH (08:49)
[2018-09-21] MEDS: ATENOLOL 25 MG TAB PO SCH (08:49)
[2018-09-21 12:00] VITALS: BP 106/54
[2018-09-21] MEDS: FENTANYL/BUPIVACAINE/NACL BAG 250 ML EPIDURAL SCH (12:20)
--- NOTE | 2018-09-21 14:03 | IPN ---
DATE: 09/21/2018 This is now the 4th postoperative day for Mrs. Knutson. Her pain is being fairly well controlled with the epidural. She is complaining of more pain today with it being 5 out of 10 and now will increase the epidural. Her renal function is improving. Her vital signs show a maximum temperature (T-max) of 98.6 with a heart rate that ranges between 55 and 84 in a sinus rhythm, a respiratory rate that is constant at 18, who is 92% saturated on 1 liter nasal cannula, and whose blood pressure is ranging between 111/51 to 98/52. Her intake and output the past 24 hours has been recorded as 1460 in and 1870 out for a negativity of 410 mL. I did not diurese her yesterday and in fact gave her a bolus of 500 mL of normal saline. She has put 330 mL out the chest tube. There is no air leak. Weight today is 93.8 kg compared to 94.2 kg yesterday. On physical examination, she has some mild crackles during inspiration on the right hemithorax. Percussion notes are full to the diaphragm. Cardiac Exam: Without murmurs, clicks, gallops, or rubs. I cannot feel her PMI. S1 and S2 are normal. Abdomen: Soft. Nontender. Bowel sounds are positive. There is no hepatomegaly. No costovertebral angle (CVA) tenderness. She has not yet had a bowel movement, but is passing flatus. Extremities: Show no pretibial edema. No calf tenderness. No differential swelling of the upper extremities. Skin: Warm, dry and perfused. Without cyanosis or mottling, including that of the nail beds and knees. Neck: Supple. There is no jugular venous distention. No subcutaneous emphysema. Trachea is midline. Mouth: Shows her mucous membranes to be pink and moist. Lips and commissures are without lesions. There is no thrush. Eyes: Show her pupils to be equal and reactive. Extraocular movements intact. Sclerae nonicteric. Neurologic: Shows II-XII intact along with gross motor and gross sensation intact. Gait is not tested, although the nurses tell me she walked to x-ray today. Psychiatric shows her to be awake, alert, and oriented times three with appropriate mood and affect and conversational. Her white count today is 5.3 with hemoglobin and hematocrit of 11.9 and 36.6, up from 10.5 and 32.9 yesterday, probably secondary to hemoconcentration. Platelet count is up to 228. Differential shows 66% neutrophils, 16% lymphocytes and 8% monocytes. There are no immature forms and no toxic granulations. Her electrolytes are normal with a BUN and creatinine of 20 and 1.30, improved from 29 and 1.46 yesterday. Glucose is 101 with a calcium of 8.5. The heparin induced antibody is still pending. Her chest x-ray today again shows her lung fully expanded to the chest wall. She has atelectatic changes on the right hemithorax with the right upper lobe tumor evident. The costophrenic angles are sharp. There is dissipating subcutaneous emphysema along the lateral chest wall and the neck. The neck emphysema is not palpable on physical examination. IMPRESSION: 1. Postoperative day #4 status post multiple wedge resections. 2. 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 3. Hypertension. 4. Arthritis, on Plaquenil. 5. Chronic back pain. 6. Thrombocytopenia, resolving with discontinued heparin. 7. Relative hypotension secondary to epidural, improving. 8. Rising creatinine and renal insufficiency, improving. PLAN AND DISCUSSION: I will continue her as is. She has put out too much from the chest tubes to remove them. I will again hold her atenolol and her Toradol. Hopefully, I will be able to remove the chest tubes tomorrow and discharge her the day after. I will increase her epidural however as she is having more pain.
--- NOTE | 2018-09-21 14:03 | REP ---
Clinical: Status post thoracotomy. Technique: PA and lateral. Comparison: 09/20/2018. Findings: The right upper lobe mass and postsurgical pleuroparenchymal changes involving the right hemithorax including two chest tubes remain essentially stable. Subcutaneous emphysema along the right chest/neck again noted. Right lateral rib fractures and now apparent. Left hemithorax is clear. Cardiac silhouette is normal. Skeletal structures are grossly intact. Impression: 1. Right rib fractures are now apparent. 2. Right-sided postsurgical changes remain essentially stable. Electronically Signed by Slade Garibay MD 09/21/2018 08:27 A
[2018-09-21 16:00] VITALS: BP 119/58
[2018-09-21 20:00] VITALS: BP 107/49
[2018-09-22] VITALS (7 sets, daily range): BP systolic 93–126; BP diastolic 51–81
[2018-09-22] MEDS: LEVALBUTEROL 1.25 MG/0.5 ML CONCENTRATE NEB NEB SCH ×4 (01:51→20:04)
[2018-09-22] MEDS: ACETAMINOPHEN TAB 650MG DOSE (2X325MG) PO PRN (02:10)
[2018-09-22 06:17] LABS: BASO % 0.7 % (0.0-1.0); EOS # 0.3 10^3/uL (0.0-0.50); EOS % 4.5 % (0.0-3.0); HEMATOCRIT 33.5 % (36.0-47.0); HEMOGLOBIN 10.8 g/dl (12.0-15.5); LYMPH # 0.8 10^3/uL (1.5-4.5); MEAN CORPUSCULAR HEMOGLOBIN 29.1 pg (27.0-33.0); MEAN CORPUSCULAR HGB CONC 32.2 g/dl (32.0-36.5); MEAN CORPUSCULAR VOLUME 90.3 fl (80.0-96.0); MONO # 0.6 10^3/uL (0.0-0.8); MONO % 11.6 % (0.0-5.0); NEUTROPHILS # 3.8 10^3/uL (1.8-7.7); PLATELET COUNT, AUTOMATED 169 10^3/uL (150-450); RED BLOOD COUNT 3.71 10^6/uL (4.00-5.40); WHITE BLOOD COUNT 5.5 10^3/uL (4.0-10.0)
[2018-09-22] MEDS: SLF 3 ML SYR IV SCH ×3 (06:19→22:01)
[2018-09-22 06:35] LABS: CALCIUM LEVEL 8.6 MG/DL (8.8-10.2); CREATININE FOR GFR 1.19 MG/DL (0.55-1.30); GLOMERULAR FILTRATION RATE 48.8 (>45); POTASSIUM SERUM 4.2 MEQ/L (3.5-5.1)
[2018-09-22] MEDS ORDERED: FUROSEMIDE 40 MG/4 ML VIAL (J1940) IV ONE (07:15)
--- NOTE | 2018-09-22 08:20 | IPN ---
DATE: 09/22/2018 This is now the 5th postoperative day for Mrs. Knutson. Her pain is being well controlled. Her kidneys have returned to normal function. Her vital signs show a maximum temperature (T-max) of 98.6 with a heart rate that ranges between 75 and 85 and is sinus rhythm, respiratory rate of 18 to 17 without the use of accessory muscles, who is 96% saturated on room air, and whose blood pressure is ranging between 119/58 to 107/49. Her intake and output the past 24 hours has been recorded as 518 in and 1840 out for a negativity of 1321 mL. She has put 215 mL from the chest tube and there is no air leak. Weight today is 93.8 kg which is the same as yesterday. On physical examination, she has essentially normal vesicular sounds in both lungs, except for the right lower lobe where there is some mild inspiratory rales. Percussion notes are full to the diaphragm. Cardiac exam is without murmurs, clicks, gallops, or rubs. I cannot feel her PMI. S1 and S2 are normal. Abdomen is soft. Nontender. Bowel sounds are positive. There is no hepatomegaly. No costovertebral angle (CVA) tenderness. Extremities show no pretibial edema. No calf tenderness. No differential swelling of the upper extremities. Skin is warm, dry and perfused without cyanosis or mottling, including that of the nail beds and knees. Neck is supple. There is no jugular venous distention. No subcutaneous emphysema. Trachea is midline. Mouth shows her mucous membranes to be pink and moist. Lips and commissures are without lesions. There is no thrush. Eyes show her pupils to be equal and reactive. Extraocular movements intact. Sclerae nonicteric. Neurologic shows II-XII intact along with gross motor and gross sensation intact. Gait is not tested. Psychiatric shows her to be awake, alert, and oriented times three with appropriate mood and affect and conversational. Her white count today is 5.5 with hemoglobin and hematocrit of 10.8 and 33.5, respectively, essentially unchanged yesterday with a platelet count of 169. Differential shows 68% neutrophils, 15% lymphocytes, and 11% monocytes. There are no immature forms, no toxic granulations. Her electrolytes today are normal with a BUN and creatinine of 19 and 1.19, down from 1.30. Glucose is 104 with a calcium of 8.6. Her heparin induced antibody is 0.18, but the upper limit of normal is 0.4. The platelet drop a few days ago was therefore not related to the heparin and has since recovered. Her chest x-ray is pending today. IMPRESSION: 1. Postoperative day 5 status post multiple wedge resections. 2. At least Stage IIIA adenocarcinoma with lymphangitic spread to all lobes. 3. Hypertension. 4. Arthritis, on Plaquenil. 5. Chronic back pain. 6. Thrombocytopenia, resolved, unknown cause. 7. Relative hypotension secondary to epidural, resolved. 8. Renal insufficiency resolved. PLAN AND DISCUSSION: I will discontinue her chest tube today. Will wean her epidural and discontinue her Casanova. I will give her one dose of Lasix today. Her pain is very well controlled and I will not restart the Toradol. We will tentative plan for discharge in the morning.
[2018-09-22] MEDS: MOM 30ML SUSPENSION UDC PO SCH (08:42)
[2018-09-22] MEDS: HYDROXYCHLOROQUINE 200 MG TAB PO SCH ×2 (08:43→21:55)
[2018-09-22] MEDS: PANTOPRAZOLE 40MG TAB (PROTONIX) PO SCH (08:43)
[2018-09-22] MEDS: DOCUSATE SODIUM 100 MG CAP PO SCH ×2 (08:43→21:55)
[2018-09-22] MEDS: GABAPENTIN 100 MG CAP PO SCH ×3 (08:43→21:55)
[2018-09-22] MEDS: DYAZIDE 37.5/25 CAP (TRIAM/HCTZ) PO SCH (08:43)
[2018-09-22] MEDS: ATENOLOL 25 MG TAB PO SCH (08:46)
[2018-09-22] MEDS: SIMVASTATIN 10 MG TAB PO SCH (08:46)
[2018-09-22] MEDS: PERCOCET 5MG/325MG TAB PO PRN ×3 (12:28→21:27)
--- NOTE | 2018-09-22 12:31 | REP ---
CHEST X-RAY: Two views. HISTORY: Status post thoracotomy. Comparison study is from September 21, 2018. FINDINGS: In the interval since yesterday's radiograph, the two right-sided chest tubes have been withdrawn. There is some residual subcutaneous air in the extrathoracic soft tissues on the right. There is a right lateral rib fracture visualized unchanged. There is some pleural thickening on the right and tenting of the right hemidiaphragm is seen with blunting of the right lateral pleural angle. These pleural changes are unchanged. There is a rounded opacity in the right upper lung zone measuring 2.9 cm in diameter unchanged. EKG monitoring electrodes and an epidural catheter persist. Left lung remains clear. IMPRESSION: Two right-sided chest tubes withdrawn. Right upper lobe mass again seen. Pleuroparenchymal changes on the right. Electronically Signed by Fidel Cheatham MD 09/22/2018 05:08 P
[2018-09-22] MEDS: ONDANSETRON 4MG/2ML VIAL (J2405) IV PRN ×2 (17:39→21:27)
[2018-09-23] VITALS: BP 120/59
[2018-09-23] MEDS: ONDANSETRON 4MG/2ML VIAL (J2405) IV PRN ×3 (01:26→11:38)
[2018-09-23] MEDS: LEVALBUTEROL 1.25 MG/0.5 ML CONCENTRATE NEB NEB SCH ×4 (02:00→20:00)
[2018-09-23 04:00] VITALS: BP 116/65
[2018-09-23] MEDS: PERCOCET 5MG/325MG TAB PO PRN ×2 (05:20→09:29)
[2018-09-23] MEDS: SLF 3 ML SYR IV SCH ×3 (05:21→20:56)
[2018-09-23 05:33] LABS: BASO # 0.1 10^3/uL (0.0-0.2); EOS # 0.4 10^3/uL (0.0-0.50); EOS % 7.5 % (0.0-3.0); HEMATOCRIT 34.2 % (36.0-47.0); LYMPH # 1.2 10^3/uL (1.5-4.5); LYMPH % 23.8 % (24.0-44.0); MEAN CORPUSCULAR HEMOGLOBIN 28.9 pg (27.0-33.0); MEAN CORPUSCULAR HGB CONC 32.2 g/dl (32.0-36.5); MEAN CORPUSCULAR VOLUME 89.8 fl (80.0-96.0); MONO # 0.7 10^3/uL (0.0-0.8); MONO % 14.3 % (0.0-5.0); NEUTROPHILS # 2.7 10^3/uL (1.8-7.7); NEUTROPHILS % 53.2 % (36.0-66.0); PLATELET COUNT, AUTOMATED 194 10^3/uL (150-450); RED BLOOD COUNT 3.81 10^6/uL (4.00-5.40); WHITE BLOOD COUNT 5.1 10^3/uL (4.0-10.0)
[2018-09-23 05:51] LABS: CALCIUM LEVEL 8.6 MG/DL (8.8-10.2); CREATININE FOR GFR 1.21 MG/DL (0.55-1.30); GLOMERULAR FILTRATION RATE 47.8 (>45); POTASSIUM SERUM 3.5 MEQ/L (3.5-5.1)
[2018-09-23 08:00] VITALS: BP 126/67
[2018-09-23] MEDS: DOCUSATE SODIUM 100 MG CAP PO SCH ×2 (08:06→20:56)
[2018-09-23] MEDS: GABAPENTIN 100 MG CAP PO SCH ×3 (08:06→20:56)
[2018-09-23] MEDS: DYAZIDE 37.5/25 CAP (TRIAM/HCTZ) PO SCH (08:06)
[2018-09-23] MEDS: SIMVASTATIN 10 MG TAB PO SCH (08:07)
[2018-09-23] MEDS: ATENOLOL 25 MG TAB PO SCH (08:07)
[2018-09-23] MEDS: HYDROXYCHLOROQUINE 200 MG TAB PO SCH ×2 (08:07→20:56)
[2018-09-23] MEDS: PANTOPRAZOLE 40MG TAB (PROTONIX) PO SCH (08:07)
[2018-09-23] MEDS: MOM 30ML SUSPENSION UDC PO SCH (08:08)
[2018-09-23] MEDS ORDERED: PERCOCET PO (08:25)
--- NOTE | 2018-09-23 10:58 | DSES ---
DATE OF ADMISSION: 09/17/2018 DATE OF DISCHARGE: 09/24/2018 DISCHARGE DIAGNOSES: 1. Stage IIIA adenocarcinoma with lymphangitic spread to all lobes. 2. Postoperative day number 6 status post multiple wedge resections, middle and lower lobes, right side. 3. Hypertension. 4. Arthritis, on Plaquenil. 5. Chronic back pain. 6. Thrombocytopenia, resolved, unknown cause. Negative for heparin antibody. 7. Renal insufficiency, resolved. HOSPITAL COURSE: The patient is a 62-year-old white female who was found to have a lung lesion on a routine preoperative chest x-ray in preparation for knee surgery. This led to a CT scan and an eventual biopsy which showed her to have moderately differentiated adenocarcinoma. She was essentially asymptomatic. Her preoperative FEV1 was 2.03, which is 79% of predicted. CT scan done showed a spiculated right upper lobe lesion with no mediastinal lymphadenopathy and a PET scan showed intense hypermetabolic uptake of the right upper lesion with no other hypermetabolic foci. She was therefore taken to the operating room with the intent to undertake a right upper lobectomy for stage I disease. Upon entering her chest, a gritty texture of her lower and middle lobes were found and prior to committing to a lobectomy these were biopsied and found to be diffuse adenocarcinoma with lymphangitic spread. The fissure was also seen to be invaded with metastatic disease. Therefore, the lobectomy was abandoned as it would offer no survival advantage. The patient had a benign postoperative course except for some transient renal failure, most likely secondary to hypotension secondary to the epidural. She also had a drop in her platelet count to 122 from a baseline of about 190. Heparin was stopped and heparin antibody was sent off, which came back negative. She is being discharged today on her home medications which include: - atenolol 25 mg daily - gabapentin 200 mg three times a day - Plaquenil 200 mg twice a day - Advil 200 mg by mouth as needed for pain - pantoprazole 40 mg daily - simvastatin 10 mg daily - Dyazide 37.5-25 one daily - Percocet 5/325 every 4 hours as needed for pain I will see her back in the office in one week in postoperative follow-up. At that time, I will make a referral to oncology and present her at cancer conference. Her discharge white count is 5.1 with a discharge hemoglobin and hematocrit of 11.0 and 34.2 and a platelet count of 194. Chemistries show a sodium of 133, probably secondary to diuresis with a potassium of 3.5 and a BUN and creatinine of 22 and 1.21. Her chest x-ray shows her lung fully expanded to the chest wall. Addendum 09/24/2018: Discharge held yesterday for pain control. Now on fentanyl patch 25mcg q three days. Much better pain control today. Will discharge. [facility]
--- NOTE | 2018-09-23 11:16 | REP ---
Chest x-ray: Two views. History: Status post thoracotomy. Comparison study: September 22, 2018. Findings: EKG monitoring electrodes overlie the chest. Areas of pleural thickening persists along the right lateral chest wall. A right upper lobe mass density is again seen. There is slight blunting of the right lateral pleural angle. The left lung remains clear. Mild extrathoracic soft tissue emphysema persists on the right. No new infiltrate is seen. Electronically Signed by Fidel Cheatham MD 09/23/2018 04:52 P
[2018-09-23 12:00] VITALS: BP 102/60
[2018-09-23] MEDS: KETOROLAC 30 MG/ML VIAL (J1885) IV SCH ×2 (13:58→18:52)
[2018-09-23] MEDS ORDERED: fentaNYL 25 MCG/HR PATCH TOP ONE (14:00)
--- NOTE | 2018-09-23 15:13 | IPN ---
DATE: 09/23/2018 My intention was to discharge Mrs. Knutson today, however, she is still having significant pain with nausea and vomiting, I have, therefore, decided to hold her. Her chest tube was removed yesterday. Her epidural was weaned, and her Casanova discontinued yesterday. Her vital signs show a maximum temperature (Tmax) of 98.6 with a heart rate that ranges between 69 and 73 in a sinus rhythm, respiratory rate is constant at 18, who is 95% saturated on room air, and whose blood pressure is ranging between 126/67 to 116/65. Her intake and output for the past 24 hours has been recorded as 1160 in and 1655 out for a negativity of 495 mL. Chest tube was removed yesterday after putting out 30 mL. Her weight today is 90.9 kg compared to 93.8 kg yesterday. On physical examination, she has some crackles in the right lower hemithorax. Percussion notes are full to the diaphragm. Cardiac exam is without murmurs, clicks, gallops, or rubs. I cannot feel her point of maximum impulse (PMI). S1 and S2 are normal. Abdomen is soft. Nontender. Bowel sounds positive. There is no hepatomegaly. No costovertebral angle (CVA) tenderness. She had a bowel movement yesterday. Extremities show no pretibial edema. No calf tenderness. No differential swelling of the upper extremities. Skin is warm, dry, and perfused without cyanosis or mottling, including that of the nail beds and knees. Neck is supple. There is no jugular venous distention. No subcutaneous emphysema. Trachea is midline. Mouth shows her mucous membranes to be pink and moist. Lips and commissures are without lesions. There is no thrush. Eyes show her pupils to be equal and reactive. Extraocular movements intact. Sclerae nonicteric. Neurologic shows II-XII intact along with gross motor and gross sensation intact. Gait is also intact. Psychiatric shows her to be awake, alert, and oriented times three with appropriate mood and affect and conversational. Her white count today is 5.1 with hemoglobin and hematocrit of 11.0 and 34.2, probably secondary to hemoconcentration. Platelet count is 194 and stable, and differential shows 52% neutrophils, 23% lymphocytes, 14% monocytes. There are no immature forms, no toxic granulations. Her electrolytes are essentially normal, marginally low sodium 133, potassium of 3.5. BUN and creatinine are 22 and 1.21, respectively, with a glucose of 105 and a calcium of 8.6. Her chest x-ray shows her lung fully expanded to the chest wall. There are some atelectatic changes in the right lower hemithorax. There is some edema in and around her incision line, and her subcutaneous emphysema is resolving. IMPRESSION: 1. Postoperative day #5, status post multiple wedge resections and right thoracotomy. 2. Stage IIIA adenocarcinoma with lymphangitic spread to all lobes. 3. Hypertension. 4. Arthritis, on Plaquenil. 5. Chronic back pain. 6. Thrombocytopenia, resolved. 7. Renal insufficiency, resolved. 8. Problematic pain control with nausea. PLAN AND DISCUSSION: I will add a fentanyl patch. Will treat her nausea with Zofran. Because she is feeling rather down and under the weather secondary to her pain control, I will keep her another day to see if we can get her pain more well controlled.
[2018-09-23 16:00] VITALS: BP 109/59
[2018-09-23 20:00] VITALS: BP 123/60
[2018-09-24] VITALS: BP 111/57
[2018-09-24] MEDS: LEVALBUTEROL 1.25 MG/0.5 ML CONCENTRATE NEB NEB SCH ×2 (02:00→07:09)
[2018-09-24 04:00] VITALS: BP 121/53
[2018-09-24] MEDS: KETOROLAC 30 MG/ML VIAL (J1885) IV SCH ×3 (06:17→11:39)
[2018-09-24] MEDS: SLF 3 ML SYR IV SCH (06:17)
[2018-09-24 08:00] VITALS: BP 111/64
[2018-09-24] MEDS: PERCOCET 5MG/325MG TAB PO PRN (09:03)
--- NOTE | 2018-09-24 10:36 | REP ---
CHEST X-RAY: Two views. HISTORY: Status post thoracotomy. COMPARISON STUDY: September 23, 2018. FINDINGS: EKG monitoring electrodes overlie the chest. There is less extrathoracic soft tissue emphysema today. Pleural thickening is again noted on the right lateral chest wall and blunting of the right lateral pleural angle is seen. The previously noted mass is noted with a fiducial metallic marker within it. Left lung remains clear. No new infiltrate. Electronically Signed by Fidel Cheatham MD 09/24/2018 10:44 A
[2018-09-24] MEDS: DYAZIDE 37.5/25 CAP (TRIAM/HCTZ) PO SCH (11:36)
[2018-09-24] MEDS: PANTOPRAZOLE 40MG TAB (PROTONIX) PO SCH (11:36)
[2018-09-24 11:37] VITALS: BP 111/64
[2018-09-24] MEDS: ATENOLOL 25 MG TAB PO SCH (11:37)
[2018-09-24] MEDS: SIMVASTATIN 10 MG TAB PO SCH (11:37)
[2018-09-24] MEDS: DOCUSATE SODIUM 100 MG CAP PO SCH (11:37)
[2018-09-24] MEDS: GABAPENTIN 100 MG CAP PO SCH (11:37)
[2018-09-24] MEDS: HYDROXYCHLOROQUINE 200 MG TAB PO SCH (11:38)
[2018-09-24] MEDS: MOM 30ML SUSPENSION UDC PO SCH ×2 (11:38→11:50)
[2018-09-24] MEDS ORDERED: DURA25DI3 TD (12:53)
[2018-09-26] MEDS ORDERED: FENTANYL REMOVAL DOCUMENTATION MISC XX ONE (14:00)
== END 2018-09-24 14:06 | disposition home or self-care (01) | DRG 121 ==
LOC: M OR 06:30 → M ICU 13:11 → M PCU 09-20 10:31
PROVIDERS: ADMIT Thoracic Surgery (Cardiothoracic Vascular Surgery); ATTEND Thoracic Surgery (Cardiothoracic Vascular Surgery)
PROC: 0BBD0ZZ Excision of Right Middle Lung Lobe, Open Approach (ICD-10-PCS; 2018-09-17)
PROC: 0BBF0ZZ Excision of Right Lower Lung Lobe, Open Approach (ICD-10-PCS; 2018-09-17)
PROC: 0BJ08ZZ Inspection of Tracheobronchial Tree, Via Natural or Artificial Opening Endoscopic (ICD-10-PCS; 2018-09-17)
PROC: 0BBN0ZX Excision of Right Pleura, Open Approach, Diagnostic (ICD-10-PCS; 2018-09-17)
PROC: 0BBC0ZZ Excision of Right Upper Lung Lobe, Open Approach (ICD-10-PCS; principal; 2018-09-17 08:35)
DX: C34.11 Malignant neoplasm of upper lobe, right bronchus or lung (principal); I95.89 Other hypotension; D69.59 Other secondary thrombocytopenia; C78.02 Secondary malignant neoplasm of left lung; C77.1 Secondary and unspecified malignant neoplasm of intrathoracic lymph nodes; I10 Essential (primary) hypertension; M54.9 Dorsalgia, unspecified; M19.90 Unspecified osteoarthritis, unspecified site; N28.9 Disorder of kidney and ureter, unspecified; E78.00 Pure hypercholesterolemia, unspecified; M06.80 Other specified rheumatoid arthritis, unspecified site; Z79.899 Other long term (current) drug therapy

== ENCOUNTER → 2018-09-29 | Outpatient (CLI) | payer BC ==
[~2018-09-29] MED LIST changes: +DURA25DI3 TD; -LR 1,000 ML IV ONE; -MIDAZOLAM INJ 2 MG/2 ML VIAL (J2250) IV SCH; -MUPIROCIN 2% OINT 22 GM TUBE TOP ONE; +PERCOCET PO; -SIMV10TA2 PO; +SIMV10TA21 PO
--- NOTE | 2018-09-29 08:44 | REP ---
Chest x-ray: Two views. History: Malignant neoplasm of the upper lobe. Comparison chest x-ray September 24, 2018. Findings: The left lung remains clear. There is blunting of the pleural angles on the right and there is some pleural thickening on the right. There is a lateral right rib fracture unchanged. Right upper lobe lung nodule is seen with a fiducial marker in place unchanged. The pleuroparenchymal opacity in the right base is essentially unchanged. Electronically Signed by Fidel Cheatham MD 09/29/2018 08:36 A
== END ==
LOC: M SMT 08:14
PROVIDERS: ATTEND Thoracic Surgery (Cardiothoracic Vascular Surgery)
DX: C34.11 Malignant neoplasm of upper lobe, right bronchus or lung (principal)